=== PATIENT | female | born 1985 | race Caucasian/White ===

== ENCOUNTER 2019-01-24 11:02 | Emergency (ER) | payer OTHER ==
[~2019-01-24] VITALS: Ht 167 cm; Wt 56.2 kg
[2019-01-24] MEDS ORDERED: PRENATAL PO (11:36)
[2019-01-24] MEDS ORDERED: ZYRTEC10 M2 PO (13:28)
[2019-01-24] MEDS ORDERED: VENTOLIN HFA 1818 GM INH (13:28)
[2019-01-24 13:50] VITALS: BP 92/51
== END 2019-01-24 13:52 | disposition home or self-care (01) ==
LOC: ER 11:02
DX: J40 Bronchitis, not specified as acute or chronic (principal)